=== PATIENT | female | born 1970 | race Caucasian/White ===

== ENCOUNTER 2018-04-28 13:50 | Observation (INO) ==
--- NOTE | 2018-04-27 12:52 | MH ---
cc: Bill Pepper MD DATE OF ADMISSION: 04/28/2018 HISTORY OF PRESENT ILLNESS: The patient is a 47-year-old white female, para 1-0-0-1, had LMP 06/2016. Then developed menstrual pain, labor 03/2018 that led to evaluation by her primary doctor. Her ultrasound of the pelvis showed a uterus that measured 4.9 x 5.6 x 3.6 cm, endometrium 13 mm. Right ovary was normal. Left could not be seen. She is now admitted for surgical evaluation. PAST MEDICAL HISTORY: She had a D and C in 2011 for benign polyps. MEDICATIONS: Synthroid and Celexa. ALLERGIES: NONE. PAST SURGICAL HISTORY: Gastric bypass in 2013, laparoscopic. OBSTETRIC HISTORY: Vaginal delivery 2007. 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 Alcohol, tobacco and drugs are none. FAMILY HISTORY: Noncontributory. PHYSICAL EXAMINATION: GENERAL: She is a well-nourished, well-developed white female. VITAL SIGNS: Stable. HEENT: Normal. CHEST: Clear. HEART: Regular rate. The best are symmetrical. ABDOMEN: Benign. PELVIC: Normal external genitalia and BUS. Vagina is normal. Cervix normal. Uterus is normal size, shape. Adnexa nonpalpable. ASSESSMENT: As above. PLAN: She is now admitted for D and C, frozen section, laparoscopy with either a LSH/BSO or CHELSY/BSO. The risk and benefits and complications have been accepted. MD VÍCTOR Siddiqui/claudia , 12:23 PM , 12:29 PM
[2018-04-28] MEDS ORDERED: Chlorhexidine Gluconate 2% 1 Pack (2 Cloths) TOPICAL SCH (14:17)
[2018-04-28] MEDS ORDERED: Metoprolol Tartrate 25 MG Tablet PO SCH (14:17)
[2018-04-28] MEDS ORDERED: Sodium Chlor 0.9% Inj 500 ML IV.SIG SCH (15:00)
[2018-04-28] MEDS ORDERED: ceFAZolin 2 GM Premix Inj 2 GM/50 ML PIGGYBACK IV.SIG SCH (15:00)
[2018-04-28] MEDS ORDERED: Neostigmine Inj 5 MG/5 ML Syringe IV.PUSH ONE (16:10)
[2018-04-28] MEDS ORDERED: Glycopyrrolate Inj 1 MG/5 ML Syringe IV.PUSH ONE (16:10)
[2018-04-28] MEDS ORDERED: Lidocaine PF 1% Inj 5 ML Syringe OTHER ONE (16:10)
[2018-04-28] MEDS ORDERED: Ketorolac Inj 30 MG/ML (IVP) Vial IM ONE (16:10)
[2018-04-28] MEDS ORDERED: Ketorolac Inj 30 MG/ML (IVP) Vial IV.PUSH ONE (16:10)
[2018-04-28] MEDS ORDERED: Bupivacaine Liposomal PF 1.3% Inj 20 ML Vial ONE (17:16)
[2018-04-28] MEDS ORDERED: Zolpidem Tartrate 5 MG Tablet PO PRN (17:28)
[2018-04-28] MEDS ORDERED: HYDROmorphone PF Inj 2 MG/ML Vial IV.PUSH PRN (17:28)
[2018-04-28] MEDS: Ketorolac Inj 30 MG/ML (IVP) Vial IV.PUSH SCH ×2 (18:00→23:00)
[2018-04-28] MEDS ORDERED: *morphine SULFATE 4 MG/ML PERIprocedure ONLY ONE ×2 (18:04→18:13)
[2018-04-28] MEDS ORDERED: fentaNYL Citrate Inj 100 MCG/2 ML Ampul ONE (18:04)
[2018-04-28] MEDS: KCL 20 mEq/D5W/NaCl 0.45% Inj 1,000 ML IV.CONT SCH (18:18)
[2018-04-28 18:20] LABS: Hematocrit 34.7 % (35.0-46.0); Hemoglobin 11.8 gm/dL (11.6-15.3); Mean Corpuscular HGB Conc 34.2 % (32.0-36.0); Mean Corpuscular Hemoglobin 31.4 pg (27.0-34.0); Mean Corpuscular Volume 91.9 fL (80.0-100.0); Mean Platelet Volume 8.6 fL (7.0-11.0); Platelet Count 203 th/mm3 (150-450); Red Blood Count 3.77 mil/mm3 (4.00-5.30); Red Cell Distribution Width 13.8 % (11.6-17.2); White Blood Count 5.4 th/mm3 (4.0-11.0)
[2018-04-28] MEDS ORDERED: HYDROmorphone PF Inj 2 MG/ML Vial ONE (18:21)
--- NOTE | 2018-04-28 18:39 | MP ---
cc: Bill Pepper MD DATE OF OPERATION: 04/28/2018 PREOPERATIVE DIAGNOSIS: bleeding, pelvic pain. POSTOPERATIVE DIAGNOSIS: bleeding, pelvic pain. PROCEDURE PERFORMED: Dilatation and curettage frozen section followed by a [facility] BSO. ANESTHESIA: General, ET. SURGEON: Bill Pepper MD CONTROLLER MECHANIC: Mitzi Frederick ESTIMATED BLOOD LOSS: About 50 mL FLUIDS: 1.5 liters crystalloid. OBJECTIVE FINDINGS: Following induction of adequate general endotracheal anesthesia, the patient was prepped and draped supine on the operating table in dorsal lithotomy position in a sterile fashion, with the bladder being drained via Kaufman catheterization. Exam under anesthesia revealed an anterior normal size uterus. Adnexa nonpalpable. Heavy weighted speculum was placed on the posterior fornix of the vagina and anterior lip of the cervix was grasped with a toothed tenaculum. Cervix and uterus sounded to 8 cm. Cervix was dilated to #18 Hanks dilator. Endocervix curetted for permanent study. Endometrium for frozen section. Tenaculum site sutured with 3-0 Vicryl. The vaginal instruments was removed. Hammer Operator's gloves were changed. Abdomen opened curving 3 cm infraumbilical incision using a knife to cut down through the skin to the fascia. The fascia opened transversely. Peritoneum entered with blunt dissection using fingertip and a GelPort placed. Laparoscope inserted, 5 port placed in left lower quadrant and right lower quadrant. Uterus was about 12-week size. Normal tubes and ovaries, normal cul-de-sac normal liver edge. Working first on the left with my scalpel was used to take the left ovarian pedicle, left round ligament, left broad ligament, left-sided bladder flap and left uterine vessels. Same on the right. Frozen sections were benign. Harmonic scalpel was used to amputate the fundus from the cervix and the fundus, tubes and ovaries extracted in the pouch. Irrigation performed. No bleeding was evident. Ureters inspected and good peristalsis bilateral. Low pressure test was done. There was no bleeding in the neutral and Trendelenburg position. The wounds coated with the Evicel, GelPort removed. Peritoneum suture with a running 2-0 Vicryl, the fascia with a running locking stitch of the 0 Vicryl caught in the midline and tied, subcutaneous with a 3-0 Vicryl and the skin with a running subcuticular 3-0 Monocryl. The scope was now reinserted. The lower ports used to inspect the GelPort site, which was well closed with no entrapment of tissue. Pelvis was inspected. There was no bleeding. The scope was now removed, gas was allowed to escape. Small ports were removed and sutured with 3-0 Monocryl. Dermabond applied. The patient will now have her legs taken down from stirrups. Counts were correct. A TAP block was done by Anesthesia. MD VÍCTOR Siddiqui/alvaro/[email or web address] , 05:36 PM , 05:43 PM MTDD
[2018-04-28] MEDS: HYDROmorphone PF Inj 2 MG/ML Vial ONE (18:48)
[2018-04-29] MEDS: KCL 20 mEq/D5W/NaCl 0.45% Inj 1,000 ML IV.CONT SCH ×2 (02:36→11:08)
[2018-04-29] MEDS: Ketorolac Inj 30 MG/ML (IVP) Vial IV.PUSH SCH ×2 (05:01→11:49)
[2018-04-29 05:41] LABS: Baso % (Auto) 0.1 % (0.0-2.0); Hematocrit 35.9 % (35.0-46.0); Hemoglobin 11.9 gm/dL (11.6-15.3); Lymph # (Auto) 0.6 th/mm3 (1.0-4.8); Lymph % (Auto) 7.8 % (9.0-44.0); Mean Corpuscular HGB Conc 33.3 % (32.0-36.0); Mean Corpuscular Hemoglobin 31.5 pg (27.0-34.0); Mean Corpuscular Volume 94.5 fL (80.0-100.0); Mean Platelet Volume 8.2 fL (7.0-11.0); Mono # (Auto) 0.7 th/mm3 (0.0-0.9); Mono % (Auto) 8.7 % (0.0-8.0); Neut # (Auto) 6.4 th/mm3 (1.8-7.7); Neut % (Auto) 83.4 % (16.0-70.0); Platelet Count 207 th/mm3 (150-450); Red Blood Count 3.79 mil/mm3 (4.00-5.30); Red Cell Distribution Width 13.7 % (11.6-17.2); White Blood Count 7.7 th/mm3 (4.0-11.0)
[2018-04-29] MEDS ORDERED: Levothyroxine 75 MCG Tablet PO SCH (06:00)
[2018-04-29 06:03] LABS: Calcium 8.2 mg/dL (8.5-10.1); Carbon Dioxide 27.4 meq/L (21.0-32.0)
[2018-04-29 14:51] VITALS: BP 89/43; PULSE 71; RESP 18; TEMP 98.4; O2SAT 96
== END 2018-04-29 15:51 | disposition home or self-care (01) ==
LOC: HSDI 13:50 → HOR 13:50 → H1EA 19:50
PROVIDERS: ADMIT Obstetrics & Gynecology; ATTEND Obstetrics & Gynecology